=== PATIENT | female | born 1975 | race African-American/Black ===

== ENCOUNTER 2018-03-09 11:23 | Day surgery (SDC) | payer BC ==
[2018-03-09] MEDS: BUPIVACAINE 0.25% (MPF) 30 ML INJ INJ
[~2018-03-09 11:23] MED LIST: CEFAZOLIN 1 GM/50 ML (PMX) 50 ML IVPB; SOD CHLORIDE 0.9% 1,000 ML IV
[2018-03-09] MEDS ORDERED: CEFAZOLIN 1 GM/50 ML (PMX) 50 ML IVPB (12:30)
[2018-03-09] MEDS ORDERED: BUPIVACAINE 0.5% (SDV) 30 ML INJ (13:49)
[2018-03-09] MEDS ORDERED: BUPIVACAINE 0.25% (MPF) 30 ML INJ ×2 (13:49→14:21)
[2018-03-09] MEDS ORDERED: LIDOCAINE 2% (MDV) 20 ML INJ (13:49)
[2018-03-09] MEDS ORDERED: MIDAZOLAM 1 MG/ML 2 ML INJ (13:55)
[2018-03-09] MEDS ORDERED: PROPOFOL 20 ML (13:55)
[2018-03-09] MEDS ORDERED: CEFAZOLIN 1 GM INJ (13:55)
[2018-03-09] MEDS ORDERED: KETOROLAC 30 MG INJ (13:56)
[2018-03-09] MEDS ORDERED: ONDANSETRON 4 MG INJ (13:56)
[2018-03-09] MEDS ORDERED: METOCLOPRAMIDE 10 MG INJ (13:56)
[2018-03-09] MEDS ORDERED: FENTAnyl 50 MCG/ML VIAL (13:56)
[2018-03-09] MEDS ORDERED: EPHEDrine SULFATE 50 MG/5 ML SYG (14:46)
[2018-03-09] MEDS ORDERED: HYDROCODONE/APAP (5/325) TAB PO (15:00)
== END 2018-03-09 16:25 | disposition home or self-care (01) ==
LOC: SDS 11:23
DX: D17.0 Benign lipomatous neoplasm of skin and subcutaneous tissue of head, face and neck (principal)
CPT/HCPCS: 14041; 84703; 88307